=== PATIENT | male | born 1950 | race Caucasian/White ===

== ENCOUNTER 2020-09-06 08:38 | Day surgery (SDC) | payer OTHER ==
[~2020-09-06] VITALS: Ht 190.5 cm; Wt 105.3 kg
[~2020-09-06 08:38] MED LIST: ELIQUIS5 MG PO; IBUP800 PO; METO25ER; METO25ER PO; Norco 5-325 Ta1 EACH PO; Pravachol40 MG; Prinivil10 MG; Prinivil10 MG PO
--- NOTE | 2020-09-06 09:35 | NUR ---
Ambulatory in Day Surgery Patient states colon prep results clear. History, Chart, Medications and Allergies reviewed before start of procedure. Lungs clear T/O to Auscultation. Patient confirms NPO status and agrees with scheduled surgery.
--- NOTE | 2020-09-06 10:12 | NUR ---
09/06/20 1012 Jack Wei History, Chart, Medications and Allergies reviewed before start of procedure. MONITOR INTACT WITH CONTINUOUS PULSE OXIMETRY AND INTERMITTENT BP. 3-LEAD EKG REVIEWED WITH PHYSICIAN PRIOR TO START OF PROCEDURE. O2 VIA N/C INTACT THROUGHOUT SEDATION/PROCEDURE.
--- NOTE | 2020-09-06 11:14 | NUR ---
PT DENIES PAIN OR NAUSEA POST PROCURE. EATS AND DRINKS s DIFFICULTY. GIVEN DC INSTRUCTIONS. PT VERBALIZES AN UNDERSTANDING, NO QUESTIONS. IV DC'D, CATH INTACT AND PRESSURE DRESSING APPLIED. DRESSES s DIFFICULTY. OTD IN NAD VIA WC, ESCORTED BY DC VOLUNTEER. OUTSIDE FOR SAFE RIDE HOME.
== END 2020-09-06 23:12 | disposition home or self-care (01) ==
LOC: ORSCMMR 08:38 → ORD 09:30 → ORSCMMR 23:12
PROVIDERS: Internal Medicine Gastroenterology
PROC: 0DBP8ZX Excision of Rectum, Via Natural or Artificial Opening Endoscopic, Diagnostic (ICD-10-PCS; principal; 2020-09-06 09:30)
PROC: 0DBN8ZX Excision of Sigmoid Colon, Via Natural or Artificial Opening Endoscopic, Diagnostic (ICD-10-PCS; principal; 2020-09-06 09:30)
PROC: 0DBH8ZX Excision of Cecum, Via Natural or Artificial Opening Endoscopic, Diagnostic (ICD-10-PCS; principal; 2020-09-06 09:30)
PROC: 0DBK8ZX Excision of Ascending Colon, Via Natural or Artificial Opening Endoscopic, Diagnostic (ICD-10-PCS; principal; 2020-09-06 09:30)
DX: K92.1 Melena (principal); Z86.010 Personal history of colon polyps; D12.5 Benign neoplasm of sigmoid colon; D12.0 Benign neoplasm of cecum; D12.2 Benign neoplasm of ascending colon; K62.1 Rectal polyp; I48.20 Chronic atrial fibrillation, unspecified; I10 Essential (primary) hypertension; Z79.01 Long term (current) use of anticoagulants; G47.33 Obstructive sleep apnea (adult) (pediatric); Z79.899 Other long term (current) drug therapy
CPT/HCPCS: 88305; J2250; J3010; J7120

== ENCOUNTER → 2021-05-16 | Outpatient (CLI) | payer OTHER | END | disposition home or self-care (01) | LOC: LAB SHORT 15:15 | DX: L02.415 Cutaneous abscess of right lower limb (principal) | CPT/HCPCS: 87070; 87075; 87205 ==